=== PATIENT | female | born 1940 | race American Indian/Alaskan Native ===

== ENCOUNTER 2018-10-17 09:36 | Inpatient (IN) | payer MEDICAID, MEDICARE ==
[2018-10-17] MEDS ORDERED: TORADOL IV ONE (10:14)
[2018-10-17] MEDS ORDERED: MORPHINE IV ONE (10:14)
[2018-10-17 10:38] LABS: Basophils % (Auto) 0.3 % (0.0-1.8); Eosinophils % (Auto) 0.4 % (0.0-4.3); Hematocrit 26.1 % (30.3-42.9); Hemoglobin 8.5 gm/dl (10.1-14.3); Lymphocytes # (Auto) 0.5 K/mm3 (1.2-5.4); Lymphocytes % (Auto) 5.7 % (13.4-35.0); Mean Corpuscular HGB Conc 32 % (30-34); Mean Corpuscular Volume 91 fl (79-97); Monocytes # (Auto) 0.5 K/mm3 (0.0-0.8); Monocytes % (Auto) 6.3 % (0.0-7.3); Platelet Count 218 K/mm3 (140-440); Red Blood Count 2.86 M/mm3 (3.65-5.03); Red Cell Distribution Width 15.8 % (13.2-15.2)
[2018-10-17 10:46] LABS: Calcium 9.2 mg/dL (8.4-10.2)
--- NOTE | 2018-10-17 11:19 | XRay Report ---
EXAMINATION: Right hip radiograph, 3 views, 10/17/2018 CLINICAL INFORMATION: The patient reports right hip pain after fall 2 weeks ago. COMPARISON: No relevant prior study is available for comparison. FINDINGS: There are asymmetric advanced degenerative changes of the right hip, which limits evaluation. There i s no evidence of definitive right hip fracture. Single view of the pelvis demonstrates a subtle linear lucency through the left femoral neck. There i s mild to moderate degenerative change of the left hip. IMPRESSION: 1. Advanced bony degenerative change of the right hip making it difficult to evaluate for fracture. 2. Subtle left femoral neck lucency which may be artifactual, but a subtle fracture of indeterminant age would be difficult to exclude. Please correlate with patient's clinical circumstances. Signer Name: Kallie Thomas MD Signed: 10/17/2018 11:15 AM Workstation Name: [id number]
--- NOTE | 2018-10-17 12:52 | Cat Scan Report ---
Examination: CT of the right lower extremity without contrast, 10/17/2018 CLINICAL INFORMATION: History of right lower leg pain after fall 2 weeks ago. COMPARISON: Right hip radiograph, 10/17/[address] images of the right lower extremity from the level of the mid thigh to the foot wer e obtained without intravenous contrast. Sagittal and coronal reformats were obtained. All CTs at [facility] facility utilize dose reduction techniques including automated exposure control, iterative reconst ruction and weight based dosing when appropriate to reduce patient radiation dose to as low as reason able achievable. Findings: Evaluation of the bony structures of the right lower extremity demonstrate no evidence of acute fract ure. There is generalized diffuse soft tissue swelling of both lower extremities, which was included in the field of view. A small left knee effusion is incidentally noted. IMPRESSION: 1. No evidence of acute bony fracture. 2. Diffuse soft tissue swelling of both lower extremities. Signer Name: Kallie Thomas MD Signed: 10/17/2018 12:48 PM Workstation Name: [id number]
[2018-10-17] MEDS ORDERED: NACL 0.9% 500 ML 500 ML IV ONE (15:34)
[2018-10-17] MEDS ORDERED: PROVENTIL IH PRN (15:44)
[2018-10-17] MEDS ORDERED: TYLENOL PO PRN (15:44)
[2018-10-17] MEDS ORDERED: SODIUM CHLORIDE FLUSH SYRINGE 10 ML IV PRN (15:44)
[2018-10-17] MEDS ORDERED: ZOFRAN IV PRN (15:44)
--- NOTE | 2018-10-17 15:48 | Emergency Department Report ---
ED Extremity Problem HPI - General Chief complaint: Fall Stated complaint: (R) HIP PAIN Time Seen by Provider: 10/17/18 10:04 Source: patient, EMS Mode of arrival: Wheelchair Limitations: No Limitations - History of Present Illness Initial comments: Patient is a 78-year-old female who is presenting status post a fall. Patient states that she was trying to get to the bathroom 2 weeks ago she believes and had a fall. Patient is a poor historian is unable to tell me whether she was dizzy or had chest pain or shortness of breath or if it was a simple trip and fall. Patient states she's had pain in the right hip since. She's been lying in bed for the last 2 weeks. Patient normally walks relatively well with a walker. She has a history of stroke but is able to do general tasks of her daily life herself. She does live in assisted living facility. Patient currently states she feels some weakness and pain in the right hip. She is unable to quantify how bad the hip feels. Severity scale (0 -10): 5 - Related Data Allergies Allergy/AdvReac Type Severity Reaction Status Date / Time Penicillins Allergy Swelling Verified 10/17/18 09:41 Sulfa (Sulfonamide Allergy Rash Verified 10/17/18 09:41 Antibiotics) ED Review of Systems ROS: Stated complaint: (R) HIP PAIN Other details as noted in HPI Comment: All other systems reviewed and negative ED Past Medical Hx - Past Medical History Previous Medical History?: Yes Hx Hypertension: Yes Hx CVA: Yes (right sided weakness) Hx Congestive Heart Failure: Yes Additional medical history: anemia - Surgical History Past Surgical History?: No ED Physical Exam - General Limitations: No Limitations General appearance: alert, in no apparent distress - Head Head exam: Present: atraumatic, normocephalic - Eye Eye exam: Present: normal appearance, PERRL, EOMI - ENT ENT exam: Present: mucous membranes moist - Neck Neck exam: Present: normal inspection - Respiratory Respiratory exam: Present: normal lung sounds bilaterally. Absent: respiratory distress, wheezes, rales, rhonchi - Cardiovascular Cardiovascular Exam: Present: regular rate, normal rhythm, normal heart sounds. Absent: systolic murmur, diastolic murmur, rubs, gallop - GI/Abdominal GI/Abdominal exam: Present: soft, normal bowel sounds. Absent: distended, tenderness, guarding, rebound - Extremities Exam Extremities exam: Present: normal inspection, tenderness (patient with tenderness to the right hip on palpation. She also has pain with any passive range of motion to the right hip. Leg is not internally or externally rotated and is not short.) - Back Exam Back exam: Present: normal inspection - Neurological Exam Neurological exam: Present: alert, altered. Absent: motor sensory deficit - Psychiatric Psychiatric exam: Present: normal affect, normal mood - Skin Skin exam: Present: warm, dry, intact, normal color. Absent: rash ED Course Vital Signs 10/17/18 10/17/18 10/17/18 09:54 09:55 12:28 Temperature 98.0 F Pulse Rate 87 80 Respiratory 16 16 16 Rate Blood Pressure 145/84 126/67 [Right] O2 Sat by Pulse 95 95 Oximetry ED Medical Decision Making - Lab Data Result diagrams: 10/17/18 10:22 10/17/18 10:22 Lab Results 10/17/18 10/17/18 Range/Units 10:22 10:22 WBC 8.2 (4.5-11.0) K/mm3 RBC 2.86 L (3.65-5.03) M/mm3 Hgb 8.5 L (10.1-14.3) gm/dl Hct 26.1 L (30.3-42.9) % MCV 91 (79-97) fl MCH 30 (28-32) pg MCHC 32 (30-34) % RDW 15.8 H (13.2-15.2) % Plt Count 218 (140-440) K/mm3 Lymph % (Auto) 5.7 L (13.4-35.0) % Pitkin % (Auto) 6.3 (0.0-7.3) % Eos % (Auto) 0.4 (0.0-4.3) % Baso % (Auto) 0.3 (0.0-1.8) % Lymph # 0.5 L (1.2-5.4) K/mm3 Pitkin # 0.5 (0.0-0.8) K/mm3 Eos # 0.0 (0.0-0.4) K/mm3 Baso # 0.0 (0.0-0.1) K/mm3 Seg Neutrophils % 87.3 H (40.0-70.0) % Seg Neutrophils # 7.2 (1.8-7.7) K/mm3 Sodium 141 (137-145) mmol/L Potassium 4.0 (3.6-5.0) mmol/L Chloride 107.9 H (98-107) mmol/L Carbon Dioxide 21 L (22-30) mmol/L Anion Gap 16 mmol/L BUN 53 H (7-17) mg/dL Creatinine 2.3 H (0.7-1.2) mg/dL Estimated GFR 21 ml/min BUN/Creatinine Ratio 23 % Glucose 85 (65-100) mg/dL Calcium 9.2 (8.4-10.2) mg/dL - Radiology Data Reporting MD: Kallie Thomas Dictation Time: October 17, 2018 14:10 Technical Solution Architect: Not available Rivet Sticker Date: Addendum: Additional CT images were obtained of the right lower extremity to include the right hip. Therefore, these images were reviewed for the purpose of addendum. Additional CT images of the right hip demonstrate advanced degenerative changes of the right hip. There is evidence of a remote right femoral neck fracture. No definitive acute right hip fracture is visu alized. Limited imaging of the included soft tissue structures demonstrates no evidence of acute soft tissue abnormality. Signer Name: Kallie Thomas MD Signed: 10/17/2018 2:10 PM Workstation Name: Bridge Examination: CT of the right lower extremity without contrast, 10/17/2018 CLINICAL INFORMATION: History of right lower leg pain after fall 2 weeks ago. COMPARISON: Right hip radiograph, 10/17/[address] images of the right lower extremity from the level of the mid thigh to the foot were obtained without intravenous contrast. Sagittal and coronal reformats were obtained. All CTs at this facility utilize dose reduction techniques including automated exposure control, iterative reconstruction and weight based dosing when appropriate to reduce patient radiation dose to as low as reasonable achievable. Findings: Evaluation of the bony structures of the right lower extremity demonstrate no evidence of acute fracture. There is generalized diffuse soft tissue swelling of both lower extremities, which was included in the field of view. A small left knee effusion is incidentally noted. IMPRESSION: 1. No evidence of acute bony fracture. 2. Diffuse soft tissue swelling of both lower extremities. Signer Name: Kallie Thomas MD Signed: 10/17/2018 11:48 AM Workstation Name: [id number] - Medical Decision Making Patient is a 78-year-old Female who is a poor historian who is complaining of 2 weeks of right hip pain status post fall. X-ray was inconclusive for fracture. CT of the right lower extremity was done which showed that the patient does have an age indeterminate nondisplaced fracture of the right femoral neck. This does not appear acute however whether this occurred subacute or is chronic is unknown. Patient does have significant pain on palpation and is unable to bear weight. Patient lives in assisted living where she is expected to be mobile. Patient does appear to have some dehydration and is prerenal. Patient's been u nable during her visit to produce a urinalysis. Patient will be started on IV fluids and will be admitted to the hospital. Critical care attestation.: If time is entered above; I have spent that time in minutes in the direct care of this critically ill patient, excluding procedure time. ED Disposition Clinical Impression: Inability to ambulate due to hip, Acute renal insufficiency, Dehydration Femoral neck fracture Qualifiers: Encounter type: sequela Fracture type: closed Laterality: right Qualified Code(s): S72.001S - Fracture of unspecified part of neck of right femur, sequela Disposition: DC-09 OP ADMIT IP TO THIS HOSP Is pt being admited?: Yes Does the pt Need Aspirin: No Condition: Stable Referrals: PRIMARY CARE, [Primary Care Provider] - 3-5 Days Time of Disposition: 15:51
--- NOTE | 2018-10-17 15:49 | History and Physical Report ---
History of Present Illness Chief complaint: Confusion History of present illness: 78 YO Female Assisted Living Facility Resident with HTN, CVA with RHP, Anemia, CHF presents to ED for evaluation. Pt is lethargic at time of my exam and evaluation. Pt was more alert when evaluated in triage. Pt is unable to provide detailed history at time of my exam. Pt history taken from medical record and ED staff. As per staff, the patient has experienced generalized weakness, loss of appetite over the past 2 weeks. Pt has experienced recurrent falls as well secondary to gait instability resulting in pain in the Right hip. Pt is currently nonambulatory and is dependent for 5/6 Assistance with activities of daily living, with a Pallative Performance Score of 40%. EMS notified, and uopn arrival the patient was found to be in distress and transported to [facility]. Pt seen and evaluated in ED and found to have UTI, Encephalopathy, Acute Kidney Injury, and Debility. Pt admitted to DRAKE unit. Nephrology consulted in ED. Case manag ement consulted for D/C planning and SNF placement if patient is unable to return to Assisted Living Facility. No prior admission for review. Non medication listed at time of admission for review. Pt is lethargic but has a positive gag reflex, and is able to protect her airway. Past History Past Medical History: anemia, heart failure, hypertension, stroke Past Surgical History: No surgical history, Other (reviewed) Social history: single. denies: smoking, alcohol abuse, prescription drug abuse Family history: diabetes, hypertension Medications and Allergies Allergies Allergy/AdvReac Type Severity Reaction Status Date / Time Penicillins Allergy Swelling Verified 10/17/18 09:41 Sulfa (Sulfonamide Allergy Rash Verified 10/17/18 09:41 Antibiotics) Active Meds: Active Medications Acetaminophen (Tylenol) 650 mg PO Q4H PRN PRN Reason: Pain MILD(1-3)/Fever >100.5/CULVER Albuterol (Proventil) 2.5 mg IH Q4HRT PRN PRN Reason: Shortness Of Breath Sodium Chloride (Nacl 0.9% 500 Ml) 500 mls @ 999 mls/hr IV ONCE ONE Stop: 10/17/18 16:04 Last Admin: 10/17/18 15:42 Dose: 999 mls/hr Documented by: Ondansetron HCl (Zofran) 4 mg IV Q8H PRN PRN Reason: Nausea And Vomiting Sodium Chloride (Sodium Chloride Flush Syringe 10 Ml) 10 ml IV BID RUSTY Sodium Chloride (Sodium Chloride Flush Syringe 10 Ml) 10 ml IV PRN PRN PRN Reason: LINE FLUSH Review of Systems ROS unobtainable: due to mental status Exam - Constitutional Vitals: Temp Pulse Resp BP Pulse Ox 98.0 F 80 16 126/67 95 10/17/18 09:54 10/17/18 12:28 10/17/18 12:28 10/17/18 12:28 10/17/18 12:28 General appearance: Present: mild distress, obese - EENT Eyes: Present: PERRL ENT: hearing intact, clear oral mucosa - Neck Neck: Present: supple, normal ROM - Respiratory Respiratory effort: normal Respiratory: bilateral: CTA - Cardiovascular Heart Sounds: Present: S1 & S2. Absent: rub, click - Extremities Extremities: pulses symmetrical, No edema Peripheral Pulses: within normal limits - Abdominal General gastrointestinal: Present: soft, non-tender, non-distended, normal bowel sounds Female genitourinary: Present: normal - Integumentary Integumentary: Present: clear, warm, dry - Musculoskeletal Musculoskeletal: generalized weakness - Psychiatric Psychiatric: no appropriate mood/affect, no intact judgment & insight, no memory intact - Neurologic Neurologic: moves all extremities, no gait normal Results - Labs CBC & Chem 7: 10/17/18 10:22 10/17/18 10:22 Labs: Abnormal lab results 10/17/18 10/17/18 Range/Units 10:22 10:22 RBC 2.86 L (3.65-5.03) M/mm3 Hgb 8.5 L (10.1-14.3) gm/dl Hct 26.1 L (30.3-42.9) % RDW 15.8 H (13.2-15.2) % Lymph % (Auto) 5.7 L (13.4-35.0) % Lymph # 0.5 L (1.2-5.4) K/mm3 Seg Neutrophils % 87.3 H (40.0-70.0) % Chloride 107.9 H (98-107) mmol/L Carbon Dioxide 21 L (22-30) mmol/L BUN 53 H (7-17) mg/dL Creatinine 2.3 H (0.7-1.2) mg/dL Assessment and Plan - Patient Problems (1) Encephalopathy Current Visit: Yes Status: Acute Plan to address problem: CT Head, neuro check, thyroid panel, aspiration precautions, fall precautions, seizure precautions, IVF resuscitation therapy. (2) Acute kidney injury Current Visit: Yes Status: Acute Plan to address problem: IVF resuscitation therapy, urine electrolytes, nephrology consulted, monitor uop q shift, bmp, monitor serum creatnine, nephrology consulted, renal ultrasound, (3) UTI (urinary tract infection) Current Visit: Yes Status: Acute Qualifiers: Encounter type: initial encounter Plan to address problem: CBC, CMP, Urinalysis, IV antibiotic therapy, (4) Osteoarthritis Current Visit: Yes Status: Acute Qualifiers: Laterality: bilateral Plan to address problem: Pain control, supportive care. (5) Debility Current Visit: Yes Status: Acute Plan to address problem: PT consulted, supportive care. (6) Femoral neck fracture Current Visit: Yes Status: Acute Qualifiers: Encounter type: sequela Fracture type: closed Laterality: right Qualified Code(s): S72.001S - Fracture of unspecified part of neck of right femur, sequela Plan to address problem: Ortho Surgery consulted, Suspected fracture, but may be secondary to artifact. Unable to determine. supportive care, bed rest (7) DVT prophylaxis Current Visit: Yes Status: Acute Plan to address problem: SCD to BLE while in bed, prophylactic heparin
[2018-10-17] MEDS ORDERED: TYLENOL ONE (16:01)
[2018-10-17] MEDS ORDERED: MORPHINE ONE (16:07)
[2018-10-17] MEDS: MORPHINE IV SCH ×2 (16:13→23:13)
[2018-10-17 19:11] LABS: Bilirubin,Urine NEG (Negative); Blood,Urine MOD (Negative); Color,Urine Yellow (Yellow); Protein,Urine <15 mg/dL mg/dL (Negative); Urobilinogen,Urine < 2.0 mg/dL (<2.0)
[2018-10-17 19:14] LABS: Creatinine,Urine 79.1 mg/dL (0.1-20.0)
--- NOTE | 2018-10-17 19:16 | Ultrasound Report ---
US renal BILAT INDICATION / CLINICAL INFORMATION: SCARLET. COMPARISON: None available. FINDINGS: Exam is quite limited because of the patient's body habitus. Kidneys appear to be normal in size, wit h normal cortical thickness. No obvious hydronephrosis. Bhatt catheter is present in the urinary bladder, so the bladder is collapsed. IMPRESSION: 1. Suboptimal exam. No hydronephrosis. Signer Name: Brent Olson MD Signed: 10/17/2018 7:12 PM Workstation Name: [id number]
--- NOTE | 2018-10-17 19:58 | Cat Scan Report ---
CT head/brain wo con INDICATION: confusion. TECHNIQUE: All CT scans at this location are performed using CT dose reduction for ALARA by means of automated e xposure control. COMPARISON: None FINDINGS: Visualized paranasal and mastoid sinuses are clear. Minimal chronic white matter ischemic change. No mass, hemorrhage or other acute abnormality. IMPRESSION: 1. No acute abnormality. Signer Name: Brent Olson MD Signed: 10/17/2018 7:53 PM Workstation Name: [id number]
[2018-10-17] MEDS ORDERED: LEVAQUIN 500MG/100ML 500 MG/100 ML BAG IV SCH (20:00)
[2018-10-17] MEDS: SODIUM CHLORIDE FLUSH SYRINGE 10 ML IV SCH (21:12)
[2018-10-17] MEDS: HEPARIN SUB-Q SCH (23:14)
[2018-10-18] MEDS: MORPHINE IV SCH ×4 (04:36→21:51)
[2018-10-18 06:11] LABS: Calcium 9.1 mg/dL (8.4-10.2)
[2018-10-18] MEDS: HEPARIN SUB-Q SCH ×2 (10:11→21:53)
[2018-10-18] MEDS: SODIUM CHLORIDE FLUSH SYRINGE 10 ML IV SCH ×2 (10:11→21:50)
--- NOTE | 2018-10-18 12:57 | Consultation ---
History of Present Illness - Reason for Consult Consult date: 10/18/18 acute renal failure, chronic renal failure - History of Present Illness The patient is a 78 YO female from Assisted Living Facility with history significant for Obesity, HTN, CVA, Anemia, CHF and CKD who presented to [facility] ED with c/o 2 weeks h/o R hip pain. Pt is a poor historian and unable to provide detailed history at this time. Patient has R hip pain worse with movement. She claims that she walks with a walker. Pt denies any recent fall. Pt seen and evaluated in ED and diagnosed with UTI, Encephalopathy, Acute Kidney Injury, and Debility. Nephrology consulted for evaluation of decreased kidney function. Past History Past Medical History: anemia, heart failure, hypertension, stroke Past Surgical History: No surgical history, Other (reviewed) Social history: single. denies: smoking, alcohol abuse, prescription drug abuse Family history: diabetes, hypertension Medications and Allergies Allergies Allergy/AdvReac Type Severity Reaction Status Date / Time Penicillins Allergy Swelling Verified 10/17/18 09:41 Sulfa (Sulfonamide Allergy Rash Verified 10/17/18 09:41 Antibiotics) Home Medications Medication Instructions Recorded Confirmed Last Taken Type Allopurinol [Zyloprim] 300 mg PO QDAY 10/18/18 10/18/18 10/17/18 09:00 History 300mg Aspirin [Aspirin BABY CHEW TAB] 81 mg PO QDAY 10/18/18 10/18/18 10/17/18 09:00 History 81mg AtorvaSTATin [Lipitor] 40 mg PO QHS 10/18/18 10/18/18 10/16/18 21:00 History 40mg Baclofen [Lioresal] 10 mg PO TID 10/18/18 10/18/18 10/17/18 09:00 History 10mg Carbidopa/Levodopa 25-100 [Sinemet 25 - 100 each PO Q6HR 10/18/18 10/18/18 10/17/18 09:00 History 25/100] 1 tab Carvedilol [Coreg] 6.25 mg PO BID 10/18/18 10/18/18 10/17/18 09:00 History 6.25mg Cholecalciferol Vit D3 [Vitamin D3 1,000 unit PO QDAY 10/18/18 10/18/18 10/17/18 09:00 History 1,000 UNIT TAB] 1,000 Clopidogrel [Plavix] 75 mg PO QDAY 10/18/18 10/18/18 10/16/18 21:00 History 75mg Cyanocobalamin (Vitamin B-12) 500 mcg PO DAILY 10/18/18 10/18/18 10/17/18 09:00 History 500mcg Cyanocobalamin (Vitamin B-12) 500 mcg PO DAILY 10/18/18 10/18/18 10/17/18 09:00 History [Vitamin B-12] 500mcg Furosemide [Lasix TAB] 40 mg PO QDAY 10/18/18 10/18/18 10/17/18 09:00 History 40mg Topamax 50 mg PO BID 10/18/18 10/18/18 10/17/18 09:00 History 50mg levoFLOXacin [Levaquin TAB] 500 mg PO QDAY #5 tablet 10/18/18 Unknown Rx Active Meds: Active Medications Acetaminophen (Tylenol) 650 mg PO Q4H PRN PRN Reason: Pain MILD(1-3)/Fever >100.5/CULVER Albuterol (Proventil) 2.5 mg IH Q4HRT PRN PRN Reason: Shortness Of Breath Heparin Sodium (Porcine) (Heparin) 5,000 unit SUB-Q Q12HR [facility] Last Admin: 10/18/18 10:11 Dose: 5,000 unit Documented by: Levofloxacin/Dextrose (Levaquin 500mg/100ml) 500 mg in 100 mls @ 100 mls/hr IV Q48H RUSTY; Protocol Last Admin: 10/17/18 21:05 Dose: 100 mls/hr Documented by: Morphine Sulfate (Morphine) 1 mg IV Q6H [facility] Last Admin: 10/18/18 10:42 Dose: Not Given Documented by: Ondansetron HCl (Zofran) 4 mg IV Q8H PRN PRN Reason: Nausea And Vomiting Last Admin: 10/17/18 23:22 Dose: 4 mg Documented by: Sodium Chloride (Sodium Chloride Flush Syringe 10 Ml) 10 ml IV BID [facility] Last Admin: 10/18/18 10:11 Dose: 10 ml Documented by: Sodium Chloride (Sodium Chloride Flush Syringe 10 Ml) 10 ml IV PRN PRN PRN Reason: LINE FLUSH Review of Systems ROS unobtainable: due to mental status (patient is a poor historian.) Exam - Vital Signs Vital signs: Vital Signs Temp Pulse Resp BP Pulse Ox 98.0 F 87 16 145/84 95 10/17/18 09:54 10/17/18 09:54 10/17/18 09:54 10/17/18 09:54 10/17/18 09:54 - General Appearance General appearance: well-developed, well-nourished, appears stated age, other (no distress) EENT: ATNC, PERRL, hearing intact, vision intact Neck: Present: neck supple, trachea midline Respiratory: Clear to Ascultation Heart: regular, S1S2, no murmurs Gastrointestinal: Present: normoactive bowel sounds. Absent: tenderness, dist ended Integumentary: no rash, warm and dry Neurologic: confused, disoriented, other (able to move extremities, L LE movements are limited ?due to pain) Musculoskeletal: Present: other (no edema) Psychiatric: cooperative Results - Lab Results 10/17/18 10:22 10/18/18 04:29 Most recent lab results Calcium 9.1 mg/dL (8.4-10.2) 10/18/18 04:29 79.1 mg/dL (0.1-20.0) H 10/17/18 18:45 63 mmol/L 10/17/18 18:45 - Image Kidney/bladder ultrasound: report reviewed Assessment and Plan 1. Acute kidney injury: Likely vasomotor SCARLET superimposed on CKD in the setting of volume depletion. Renal US was negative for hydro. Start on IV fluids. Monitor renal function. Avoid nephrotoxic agents. Meds dosage based on CKD. 2. FEN: Continue IV fluids. 3. UTI. 4. Encephalopathy. 5. R hip pain. 6. Normochromic anemia: POA.
--- NOTE | 2018-10-18 17:53 | Progress Note ---
Assessment and Plan Assessment and plan: 78-year-old woman With history of chronic kidney disease. Patient has a very poor historian, she believes she fell at her assisted living facility, which then led to right hip pain. Patient has a very bad history was unable to give more details about the fall or the hip pain. 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 Avoid nephrotoxins, outpatient follow-up Acute metabolic encephalopathy Likely due to uremia, improved, now back to baseline Status post fall with right hip pain CT of hip reviewed, no fractures noted, pain meds as needed Poor pulses in left lower extremity Follow-up arterial Dopplers Chronic venous stasis of lower extremities of lower extremities Diuretics as needed dvT prophylaxis Heparin subcutaneous Hospitalist Physical - Constitutional Vitals: Temp Pulse Resp BP Pulse Ox 97.5 F L 69 18 147/71 100 10/18/18 13:46 10/18/18 17:11 10/18/18 16:50 10/18/18 17:06 10/18/18 13:46 General appearance: Present: mild distress, obese Results - Labs CBC & Chem 7: 10/17/18 10:22 10/19/18 05:56 Labs: Laboratory Last Values WBC 8.2 K/mm3 (4.5-11.0) 10/17/18 10:22 RBC 2.86 M/mm3 (3.65-5.03) L 10/17/18 10:22 Hgb 8.5 gm/dl (10.1-14.3) L 10/17/18 10:22 Hct 26.1 % (30.3-42.9) L 10/17/18 10:22 MCV 91 fl (79-97) 10/17/18 10:22 MCH 30 pg (28-32) 10/17/18 10:22 MCHC 32 % (30-34) 10/17/18 10:22 RDW 15.8 % (13.2-15.2) H 10/17/18 10:22 Plt Count 218 K/mm3 (140-440) 10/17/18 10:22 Lymph % (Auto) 5.7 % (13.4-35.0) L 10/17/18 10:22 [place] % (Auto) 6.3 % (0.0-7.3) 10/17/18 10:22 Eos % (Auto) 0.4 % (0.0-4.3) 10/17/18 10:22 Baso % (Auto) 0.3 % (0.0-1.8) 10/17/18 10:22 Lymph # 0.5 K/mm3 (1.2-5.4) L 10/17/18 10:22 [place] # 0.5 K/mm3 (0.0-0.8) 10/17/18 10:22 Eos # 0.0 K/mm3 (0.0-0.4) 10/17/18 10:22 Baso # 0.0 K/mm3 (0.0-0.1) 10/17/18 10:22 Seg Neutrophils % 87.3 % (40.0-70.0) H 10/17/18 10:22 Seg Neutrophils # 7.2 K/mm3 (1.8-7.7) 10/17/18 10:22 Sodium 143 mmol/L (137-145) 10/18/18 04:29 Potassium 4.4 mmol/L (3.6-5.0) 10/18/18 04:29 Chloride 111.5 mmol/L (98-107) H 10/18/18 04:29 Carbon Dioxide 21 mmol/L (22-30) L 10/18/18 04:29 15 mmol/L 10/18/18 04:29 BUN 50 mg/dL (7-17) H 10/18/18 04:29 2.2 mg/dL (0.7-1.2) H 10/18/18 04:29 Estimated GFR 26 ml/min 10/18/18 04:29 23 % 10/18/18 04:29 Glucose 75 mg/dL (65-100) 10/18/18 04:29 Calcium 9.1 mg/dL (8.4-10.2) 10/18/18 04:29 Yellow (Yellow) 10/17/18 18:45 Slightly-cloudy (Clear) 10/17/18 18:45 6.0 (5.0-7.0) 10/17/18 18:45 Ur Specific Nelson 1.012 (1.003-1.030) 10/17/18 18:45 <15 mg/dl mg/dL (Negative) 10/17/18 18:45 Neg mg/dL (Negative) 10/17/18 18:45 Neg mg/dL (Negative) 10/17/18 18:45 Mod (Negative) 10/17/18 18:45 Pos (Negative) 10/17/18 18:45 Neg (Negative) 10/17/18 18:45 < 2.0 mg/dL (<2.0) 10/17/18 18:45 Ur Leukocyte Esterase Lg (Negative) 10/17/18 18:45 59.0 /HPF (0.0-6.0) H 10/17/18 18:45 4.0 /HPF (0.0-6.0) 10/17/18 18:45 79.1 mg/dL (0.1-20.0) H 10/17/18 18:45 63 mmol/L 10/17/18 18:45 Active Medications - Current Medications Current Medications: Generic Name Dose Route Start Last Admin Trade Name Freq PRN Reason Stop Dose Admin Acetaminophen 650 mg 10/17/18 15:44 Tylenol PO Q4H PRN Pain MILD(1-3)/Fever >100.5/CULVER Albuterol 2.5 mg 10/17/18 15:44 Proventil IH Q4HRT PRN Shortness Of Breath Heparin Sodium (Porcine) 5,000 unit 10/17/18 22:00 10/18/18 10:11 Heparin SUB-Q 5,000 unit Q12HR RUSTY Administration Levofloxacin/Dextrose 500 mg in 100 mls @ 100 mls/hr 10/17/18 20:00 10/17/18 21:05 Levaquin 500mg/100ml IV 100 mls/hr Q48H RUSTY Administration Protocol Morphine Sulfate 1 mg 10/17/18 16:00 10/18/18 16:50 Morphine IV 1 mg Q6H RUSTY Administration Ondansetron HCl 4 mg 10/17/18 15:44 10/17/18 23:22 Zofran IV 4 mg Q8H PRN Administration Nausea And Vomiting Sodium Chloride 10 ml 10/17/18 22:00 10/18/18 10:11 Sodium Chloride Flush Syringe 10 Ml IV 10 ml BID RUSTY Administration Sodium Chloride 10 ml 10/17/18 15:44 09/08/19 17:08 Sodium Chloride Flush Syringe 10 Ml IV 10 ml PRN PRN Administration LINE FLUSH
--- NOTE | 2018-10-18 18:19 | Discharge Summary ---
Providers - Providers Date of Admission: 10/17/18 15:44 Attending physician: KISHOR VILLAGRAN MD 10/17/18 15:44 Consult to Physician [CONS] Routine Comment: Consulting Provider: TANA MOY Physician Instructions: Reason For Exam: chucky 10/17/18 15:46 Consult to Case Management [CONS] Routine Services Needed at Discharge: Other Notified:: EVELIA Gustafson Physician Instructions: D/C Planning: [facility] versus SNF Physical Therapy Evaluation and Treat [CONS] Routine Comment: Reason For Exam: debility/weakness 10/17/18 19:44 Consult to Physician [CONS] Routine Comment: Consulting Provider: PRUDENCE BEATTY Physician Instructions: Reason For Exam: hip x ray lucency Primary care physician: BED [employer]ING [employer]ER Hospitalization Condition: Stable Disposition: DC/TX-70 ANOTHER TYPE [facility] Time spent for discharge: 33 mins Core Measure Documentation - Palliative Care Palliative Care/ Comfort Measures: Not Applicable - Core Measures Any of the following diagnoses?: none Exam - Constitutional Vitals: Temp Pulse Resp BP Pulse Ox 97.5 F L 69 18 147/71 100 10/18/18 13:46 10/18/18 17:11 10/18/18 16:50 10/18/18 17:06 10/18/18 13:46 General appearance: Present: no acute distress, well-nourished - EENT Eyes: Present: PERRL ENT: hearing intact, clear oral mucosa - Neck Neck: Present: supple, normal ROM - Respiratory Respiratory effort: normal Respiratory: bilateral: CTA - Cardiovascular Heart Sounds: Present: S1 & S2. Absent: rub, click - Extremities Extremities: pulses symmetrical, No edema Peripheral Pulses: within normal limits - Abdominal General gastrointestinal: Present: soft, non-tender, non-distended, normal bowel sounds Female genitourinary: Present: normal - Integumentary Integumentary: Present: clear, warm, dry - Musculoskeletal Musculoskeletal: gait normal, strength equal bilaterally - Psychiatric Psychiatric: appropriate mood/affect, intact judgment & insight - Neurologic Neurologic: CNII-XII intact, moves all extremities Plan Follow up with: PRIMARY CARE, [Primary Care Provider] - 3-5 Days Prescriptions: levoFLOXacin [Levaquin TAB] 500 mg PO QDAY #5 tablet
[2018-10-18] MEDS ORDERED: NACL 0.45% 1000 ML 1,000 ML IV SCH (22:00)
[2018-10-19] MEDS: MORPHINE IV SCH ×2 (03:46→09:08)
[2018-10-19 07:18] LABS: Albumin 2.8 g/dL (3.9-5)
[2018-10-19] MEDS: HEPARIN SUB-Q SCH (09:06)
[2018-10-19] MEDS: SODIUM CHLORIDE FLUSH SYRINGE 10 ML IV SCH (10:12)
--- NOTE | 2018-10-19 13:28 | Progress Note ---
Assessment and Plan 1. Acute kidney injury: Likely vasomotor SCARLET superimposed on CKD in the setting of volume depletion. Renal US was negative for hydro. Continue IV fluids. Renal function is improving. Monitor renal function. Avoid nephrotoxic agents. Meds dosage based on CKD. 2. FEN: Continue IV fluids. 3. UTI. 4. Encephalopathy. 5. R hip pain. 6. Normochromic anemia: POA. Subjective Date of service: 10/19/18 Interval history: Patient was seen and examined at the bedside. Objective - Vital Signs Vital signs: Vital Signs - 12hr 10/19/18 10/19/18 10/19/18 02:07 07:23 10:00 Temperature 98.1 F 98.0 F Pulse Rate 71 70 76 Respiratory 18 20 Rate Blood Pressure 168/81 159/74 O2 Sat by Pulse 100 100 16 L Oximetry - General Appearance General appearance: well-developed, well-nourished, appears stated age, obese, other (no distress) EENT: ATNC, PERRL, hearing intact Neck: supple Respiratory: Present: Clear to Ascultation Cardiology: regular, S1S2, no murmurs Gastrointestinal: normoactive bowel sounds, no tenderness, no distended Integumentary: chronic venous stasis Neurologic: other (alert, able to move extremities) Musculoskeletal: other (no edema) Psychiatric: cooperative - Lab 10/17/18 10:22 10/19/18 05:56 Most recent lab results Calcium 9.0 mg/dL (8.4-10.2) 10/19/18 05:56 Phosphorus 2.90 mg/dL (2.5-4.5) 10/19/18 05:56 Magnesium 2.10 mg/dL (1.7-2.3) 10/19/18 05:56 79.1 mg/dL (0.1-20.0) H 10/17/18 18:45 63 mmol/L 10/17/18 18:45 Medications & Allergies - Medications Allergies/Adverse Reactions: Allergies Penicillins Allergy (Verified 10/17/18 09:41) Swelling Sulfa (Sulfonamide Antibiotics) Allergy (Verified 10/17/18 09:41) Rash Home Medications: Home Medications Medication Instructions Recorded Confirmed Last Taken Type Allopurinol [Zyloprim] 300 mg PO QDAY 10/18/18 10/18/18 10/17/18 09:00 History 300mg Aspirin [Aspirin BABY CHEW TAB] 81 mg PO QDAY 10/18/18 10/18/18 10/17/18 09:00 History 81mg AtorvaSTATin [Lipitor] 40 mg PO QHS 10/18/18 10/18/18 10/16/18 21:00 History 40mg Baclofen [Lioresal] 10 mg PO TID 10/18/18 10/18/18 10/17/18 09:00 History 10mg Carbidopa/Levodopa 25-100 [Sinemet 25 - 100 each PO Q6HR 10/18/18 10/18/18 10/17/18 09:00 History 25/100] 1 tab Carvedilol [Coreg] 6.25 mg PO BID 10/18/18 10/18/18 10/17/18 09:00 History 6.25mg Cholecalciferol Vit D3 [Vitamin D3 1,000 unit PO QDAY 10/18/18 10/18/18 10/17/18 09:00 History 1,000 UNIT TAB] 1,000 Clopidogrel [Plavix] 75 mg PO QDAY 10/18/18 10/18/18 10/16/18 21:00 History 75mg Cyanocobalamin (Vitamin B-12) 500 mcg PO DAILY 10/18/18 10/18/18 10/17/18 09:00 History 500mcg Cyanocobalamin (Vitamin B-12) 500 mcg PO DAILY 10/18/18 10/18/18 10/17/18 09:00 History [Vitamin B-12] 500mcg Furosemide [Lasix TAB] 40 mg PO QDAY 10/18/18 10/18/18 10/17/18 09:00 History 40mg Topamax 50 mg PO BID 10/18/18 10/18/18 10/17/18 09:00 History 50mg levoFLOXacin [Levaquin TAB] 500 mg PO QDAY #5 tablet 10/18/18 Unknown Rx Active Medications: Generic Name Dose Route Start Last Admin Trade Name Freq PRN Reason Stop Dose Admin Acetaminophen 650 mg 10/17/18 15:44 Tylenol PO Q4H PRN Pain MILD(1-3)/Fever >100.5/CULVER Albuterol 2.5 mg 10/17/18 15:44 Proventil IH Q4HRT PRN Shortness Of Breath Heparin Sodium (Porcine) 5,000 unit 10/17/18 22:00 10/19/18 09:06 Heparin SUB-Q 5,000 unit Q12HR RUSTY Administration Levofloxacin/Dextrose 500 mg in 100 mls @ 100 mls/hr 10/17/18 20:00 10/17/18 21:05 Levaquin 500mg/100ml IV 100 mls/hr Q48H RUSTY Administration Protocol Sodium Chloride 1,000 mls @ 75 mls/hr 10/18/18 22:00 10/18/18 22:46 Nacl 0.45% 1000 Ml IV 75 mls/hr DIRECT RUSTY Administration Morphine Sulfate 1 mg 10/17/18 16:00 10/19/18 09:08 Morphine IV 1 mg Q6H RUSTY Administration Ondansetron HCl 4 mg 10/17/18 15:44 10/17/18 23:22 Zofran IV 4 mg Q8H PRN Administration Nausea And Vomiting Sodium Chloride 10 ml 10/17/18 22:00 10/19/18 10:12 Sodium Chloride Flush Syringe 10 Ml IV Not Given BID RUSTY Sodium Chloride 10 ml 10/17/18 15:44 10/18/18 17:08 Sodium Chloride Flush Syringe 10 Ml IV 10 ml PRN PRN Administration LINE FLUSH
--- NOTE | 2018-10-19 13:48 | Vascular Lab Report ---
DUPLEX DOPPLER LOWER EXTREMITY ARTERIAL, BILATERAL INDICATION: poor pulses. Peripheral vascular disease. TECHNIQUE: Arterial duplex examination of both lower extremities performed using B-mode, color flow and spectral Doppler assessment. FINDINGS: RIGHT: Common Femoral Artery: PSV 86 cm/sec. Triphasic waveform. Proximal SFA: PSV 107 cm/sec. Triphasic waveform. Mid SFA: PSV 89 cm/sec. Triphasic waveform. Distal SFA: PSV 89 cm/sec. Triphasic waveform. Popliteal artery: PSV 55 cm/sec. Triphasic waveform. Posterior tibial artery: PSV 80 cm/sec. Triphasic waveform. Anterior tibial artery: PSV 80 cm/sec. Triphasic waveform. LEFT: Common Femoral Artery: PSV 113 cm/sec. Triphasic waveform. Proximal SFA: PSV 131 cm/sec. Triphasic waveform. Mid SFA: PSV 125 cm/sec. Triphasic waveform. Distal SFA: PSV 77 cm/sec. Triphasic waveform. Popliteal artery: PSV 67 cm/sec. Triphasic waveform. Posterior tibial artery: PSV 59 cm/sec. Triphasic waveform. Anterior tibial artery: PSV 86 cm/sec. Triphasic waveform. IMPRESSION: No significant lower extremity peripheral artery disease. Doppler Waveform: * Triphasic is normal. * Biphasic is abnormal if clear transition from triphasic signal along vascular tree. * Monophasic is abnormal. Signer Name: Porfirio Flores Jr, MD Signed: 10/19/2018 1:43 PM Workstation Name: [id number]
[2018-10-19 15:19] VITALS: BP 123/69
== END 2018-10-19 15:15 | disposition home or self-care (01) | DRG 70 ==
LOC: ED 09:36 → 2B-ACE 15:44
PROVIDERS: ADMIT Internal Medicine; ATTEND Internal Medicine
DX: G93.41 Metabolic encephalopathy (principal); N17.0 Acute kidney failure with tubular necrosis; N39.0 Urinary tract infection, site not specified; M19.90 Unspecified osteoarthritis, unspecified site; D64.9 Anemia, unspecified; M25.551 Pain in right hip; N18.3 Chronic kidney disease, stage 3 (moderate); I87.8 Other specified disorders of veins; I13.0 Hypertensive heart and chronic kidney disease with heart failure and stage 1 through stage 4 chronic kidney disease, or unspecified chronic kidney disease; I50.9 Heart failure, unspecified; E86.0 Dehydration; E66.9 Obesity, unspecified; Z68.37 Body mass index [BMI] 37.0-37.9, adult; Z82.49 Family history of ischemic heart disease and other diseases of the circulatory system; Z83.3 Family history of diabetes mellitus; Z88.0 Allergy status to penicillin; Z88.2 Allergy status to sulfonamides; Z79.82 Long term (current) use of aspirin; Z79.899 Other long term (current) drug therapy; I69.351 Hemiplegia and hemiparesis following cerebral infarction affecting right dominant side
CPT/HCPCS: 36415; 70450; 76770; 80048; 80053; 81001; 82570; 83735; 84100; 84300; 85025; 87086; 93925; 94640; G0378; J1644; J1885; J1956; J2270; J2405; J7030; J7040